=== PATIENT | male | born 1970 | race Hispanic/Latino ===

== ENCOUNTER 2017-06-16 10:57 | Inpatient (IN) ==
[2017-06-16] MEDS ORDERED: 0.9 % SODIUM CHLORIDE 1,000 ML IV ONE ×2 (11:07→12:35)
[2017-06-16] MEDS ORDERED: ACETAMINOPHEN 325 MG TABLET PO ONE (11:19)
--- NOTE | 2017-06-16 11:23 | Emergency Department Note ---
Fever HPI - General Chief Complaint: Fever Stated Complaint: fever, chills Time Seen by Provider: 06/16/17 11:09 Source: patient Mode of arrival: ambulatory Limitations: no limitations - History of Present Illness HPI Narrative: 46-year-old male presents with fever. He has had a history of severe cellulitis in his right leg and has had a history of sepsis from that. He has seen infectious disease and was on penicillin daily indefinitely but he has been out for about 2 weeks. He denies any cold symptoms or cough. He states he did have some diarrhea a couple of days ago and that cleared up and he has had just a couple extra stools a day. He denies any abdominal pain. He denies nausea or vomiting. His fever is 101.7. There is no erythema to his leg but he states that it has blown up within 30 minutes previously. He states that he has some pain in his groin and also body aches. He states he has some back pain as well. He denies any urinary symptoms. He states he has been doing okay for the last few days and then this morning he woke up and he had a lot of body aches which he thought was normal but then developed a fever. His heart rate is also elevated - Related Data Home Medications Medication Instructions Recorded Confirmed metFORMIN [Glucophage] 1,000 mg PO BIDCC 08/23/15 06/16/17 Aspirin [Rose Marie Chewable Aspirin] 81 mg PO DAILY 06/16/17 06/16/17 Empagliflozin/Linagliptin 1 each PO DAILY 06/16/17 06/16/17 [Glyxambi 25 mg-5 mg Tablet] Fenofibrate Nanocrystallized 145 mg PO DAILY 06/16/17 06/16/17 [Fenofibrate] Glimepiride [Amaryl] 5 mg PO BID 06/16/17 06/16/17 Hydrochlorothiazide [Oretic] 25 mg PO DAILY 06/16/17 06/16/17 Insulin Glargine,Hum.rec.anlog 20 unit SQ QA 06/16/17 06/16/17 [Merrick Headley] Metoprolol Succinate 50 mg PO QHS 06/16/17 06/16/17 Metoprolol Succinate [Toprol Xl] 100 mg PO QAM 06/16/17 06/16/17 Penicillin Vk 500 mg PO DAILY 06/16/17 06/16/17 Valsartan [Diovan] 320 mg PO DAILY 06/16/17 06/16/17 Allergies Allergy/AdvReac Type Severity Reaction Status Date / Time No Known Drug Allergies Allergy Verified 06/16/17 11:05 Review of Systems All systems ED: reviewed and negative except as stated. Fever PMH - Past Medical History Medical history: Reports: diabetes, hypertension, other (sepsis and cellulitis) Surgical history ED: Reports: cholecystectomy Family history: Reports: no significant family history - Social History smoking status: Never smoker Physical Exam Limitations: no limitations General appearance: alert, in no apparent distress Head: atraumatic Eye: Present: normal appearance. Absent: conjunctival injection Neck: Present: normal inspection, full ROM Chest: Present: normal inspection, symmetric chest wall rise Respiratory: Present: normal lung sounds bilaterally Cardiovascular: Present: tachycardia, normal heart sounds Abdominal: Present: soft, normal bowel sounds. Absent: tenderness Extremities: Present: normal inspection, full ROM, other (right leg shows scar with no erythema or swelling. Nontender) Neurological: Present: alert, oriented X3 Psychiatric: Present: normal affect, normal mood Skin: Present: warm, dry, intact Course Course Narrative: He will be admitted inpatient. He was given 1gm of Rocephin and 1gm of Vanco IV. Also given 30mg of Toradol for headache - Reevaluation(s) Reevaluation #1: redness and warmth of the right leg started suddenly. This is typical for his cellulitis. Time: 12:15 Vital Signs Temperature 101.7 F H 06/16/17 10:58 Pulse Rate 119 H 06/16/17 10:58 Respiratory Rate 16 06/16/17 10:58 Blood Pressure 131/84 06/16/17 10:58 Pulse Oximetry (%) 98 06/16/17 10:58 Temperature 100.2 F H 06/16/17 14:02 Pulse Rate 117 H 06/16/17 14:02 Respiratory Rate 16 06/16/17 14:02 Blood Pressure 104/78 06/16/17 14:02 Pulse Oximetry (%) 96 06/16/17 14:02 Fever - MDM Narrative Medical decision making narrative: Elevated white count, elevated lactic acid, tachycardia and inflammation of right lower extremity - Lab Data Lab results reviewed: Yes I reviewed the patient's lab results. Result diagrams: 06/16/17 11:13 06/16/17 11:13 Lab Results 06/16/17 06/16/17 06/16/17 Range/Units 11:13 11:13 11:13 WBC 13.8 H (4.5-11.0) K/mcL RBC 6.19 H (4.50-5.90) M/mcL Hgb 17.5 H (13.5-16.5) g/dL Hct 51.9 (41.0-55.0) % MCV 83.9 (80.0-100.0) fL MCH 28.2 (26.0-34.0) pg MCHC 33.6 (31.0-36.0) g/dL RDW 13.2 (11.5-14.5) % Plt Count 129 L (140-440) K/mcL MPV 10.6 H (7.4-10.4) fL Gran % 87.1 H (38.0-78.0) % Lymph % (Auto) 6.4 L (15.5-49.0) % [place] % (Auto) 5.2 (1.0-12.0) % Eos % (Auto) 1.2 (0.0-7.0) % Baso % (Auto) 0.1 (0.0-2.0) % Gran # 12.0 H (1.8-8.0) K/mcL Lymph # (Auto) 0.9 L (1.5-4.8) K/mcL [place] # (Auto) 0.7 (0.1-0.9) K/mcL Eos # (Auto) 0.2 (0.0-0.7) K/mcL Baso # (Auto) 0 (0.0-0.3) K/mcL VBG Lactic Acid 2.3 H (0.5-2.2) mmol/L Sodium 141 (133-145) mmol/L Potassium 3.7 (3.3-5.1) mmol/L Chloride 99 (96-108) mmol/L Carbon Dioxide 23 (22-30) mmol/L Anion Gap 19.0 H (8-16) BUN 22 H (6-20) mg/dl Creatinine 1.0 (0.7-1.2) mg/dl GFR Calculation 90 Glucose 187 H (70-105) mg/dL Calcium 9.7 (8.6-10.4) mg/dl Total Bilirubin 0.9 (0.0-1.0) mg/dL AST 68 H (0-37) U/l ALT 88 H (0-40) U/l Alkaline Phosphatase 71 (39-117) U/L Total Protein 7.7 (5.9-8.4) gm/dL Albumin 4.5 (3.2-5.2) gm/dL Globulin 3.2 (2.2-3.7) gm/dL Albumin/Globulin Ratio 1.4 (1.0-2.3) Procalcitonin (<0.10) ng/mL Urine Color Urine Appearance Urine pH (5.0-9.0) Ur Specific [place] (1.000-1.035) Urine Protein (NEG) mg/dL Urine Glucose (UA) (NEG) mg/dL Urine Ketones (NEG) mg/dL Urine Occult Blood (<0.03) mg/dL Urine Nitrate (NEG) Urine Bilirubin (NEG) mg/dL Urine Urobilinogen (NEG) mg/dL Ur Leukocyte Esterase (NEG) /uL Urine RBC (0-1) /hpf Urine WBC (0-4) /hpf Ur Squamous Epith Cells (0-4) /hpf Urine Bacteria (0) /hpf Urine Mucus (0) /hpf Ur Culture Indicated? 06/16/17 06/16/17 Range/Units 11:13 12:08 WBC (4.5-11.0) K/mcL RBC (4.50-5.90) M/mcL Hgb (13.5-16.5) g/dL Hct (41.0-55.0) % MCV (80.0-100.0) fL MCH (26.0-34.0) pg MCHC (31.0-36.0) g/dL RDW (11.5-14.5) % Plt Count (140-440) K/mcL MPV (7.4-10.4) fL Gran % (38.0-78.0) % Lymph % (Auto) (15.5-49.0) % [place] % (Auto) (1.0-12.0) % Eos % (Auto) (0.0-7.0) % Baso % (Auto) (0.0-2.0) % Gran # (1.8-8.0) K/mcL Lymph # (Auto) (1.5-4.8) K/mcL [place] # (Auto) (0.1-0.9) K/mcL Eos # (Auto) (0.0-0.7) K/mcL Baso # (Auto) (0.0-0.3) K/mcL VBG Lactic Acid (0.5-2.2) mmol/L Sodium (133-145) mmol/L Potassium (3.3-5.1) mmol/L Chloride (96-108) mmol/L Carbon Dioxide (22-30) mmol/L Anion Gap (8-16) BUN (6-20) mg/dl Creatinine (0.7-1.2) mg/dl GFR Calculation Glucose (70-105) mg/dL Calcium (8.6-10.4) mg/dl Total Bilirubin (0.0-1.0) mg/dL AST (0-37) U/l ALT (0-40) U/l Alkaline Phosphatase (39-117) U/L Total Protein (5.9-8.4) gm/dL Albumin (3.2-5.2) gm/dL Globulin (2.2-3.7) gm/dL Albumin/Globulin Ratio (1.0-2.3) Procalcitonin 0.13 (<0.10) ng/mL Urine Color Straw Urine Appearance Clear Urine pH 5.0 (5.0-9.0) Ur Specific [place] 1.023 (1.000-1.035) Urine Protein Neg (NEG) mg/dL Urine Glucose (UA) >=500 A (NEG) mg/dL Urine Ketones Neg (NEG) mg/dL Urine Occult Blood Neg (<0.03) mg/dL Urine Nitrate Neg (NEG) Urine Bilirubin Neg (NEG) mg/dL Urine Urobilinogen Neg (NEG) mg/dL Ur Leukocyte Esterase Neg (NEG) /uL Urine RBC < 1 (0-1) /hpf Urine WBC 0 (0-4) /hpf Ur Squamous Epith Cells 0 (0-4) /hpf Urine Bacteria 0 (0) /hpf Urine Mucus Few (0) /hpf Ur Culture Indicated? No - Radiology Data Radiology results reviewed: Yes I reviewed the patient's radiology results. Normal chest. Disposition Pt seen by [employer]PERATOR/PA only: Yes Clinical Impression: Sepsis, Cellulitis Disposition: Xfer As Inpt ([facility]) Condition: Fair
[2017-06-16] MEDS ORDERED: cefTRIAXone 1 GM VIAL IV ONE (11:58)
[2017-06-16 12:02] LABS: Basophils # (Auto) 0 K/mcL (0.0-0.3); Basophils % (Auto) 0.1 % (0.0-2.0); Eosinophils # (Auto) 0.2 K/mcL (0.0-0.7); Eosinophils % (Auto) 1.2 % (0.0-7.0); Granulocytes % (Auto) 87.1 % (38.0-78.0); Lymphocytes # (Auto) 0.9 K/mcL (1.5-4.8); Lymphocytes % (Auto) 6.4 % (15.5-49.0); Mean Cell Volume 83.9 fL (80.0-100.0); Mean Corpuscular HGB Conc 33.6 g/dL (31.0-36.0); Mean Corpuscular Hemoglobin 28.2 pg (26.0-34.0); Monocytes # (Auto) 0.7 K/mcL (0.1-0.9); Monocytes % (Auto) 5.2 % (1.0-12.0); Platelet Count 129 K/mcL (140-440); RBC 6.19 M/mcL (4.50-5.90); Red Cell Distribution Width 13.2 % (11.5-14.5)
[2017-06-16 12:34] LABS: ALT/SGPT 88 U/l (0-40); Albumin 4.5 gm/dL (3.2-5.2); Albumin/Globulin Ratio 1.4 (1.0-2.3); Alkaline Phosphatase 71 U/L (39-117); Blood Urea Nitrogen 22 mg/dl (6-20)
--- NOTE | 2017-06-16 12:38 | XRay Report ---
CLINICAL INFORMATION: Fever COMPARISON: 05/05/2012 chest x-ray FINDINGS: The heart size, mediastinum and pulmonary vessels are unremarkable. The lungs are clear. There are no effusions. The bones and soft tissues are within normal limits. IMPRESSION: Normal chest. Interpreted and Authenticated by: Hayes Melchor 06/16/17
[2017-06-16] MEDS ORDERED: KETOROLAC 15 MG/ML VIAL IV ONE (12:40)
[2017-06-16] MEDS ORDERED: KETOROLAC 30 MG/ML VIAL IV ONE (12:41)
[2017-06-16 12:44] LABS: Appearance,Urine CLEAR; Bacteria,Urine 0 /hpf (0); Bilirubin,Urine NEG (NEG); Color,Urine STRAW; Glucose,Urine (UA) >=500 mg/dL (NEG); Leukocyte Esterase,Urine NEG /uL (NEG); Mucus,Urine FEW /hpf (0); Nitrate,Urine NEG (NEG); Protein,Urine NEG (NEG); Specific Gravity,Urine 1.023 (1.000-1.035); Urine Blood NEG mg/dL (<0.03); Urine RBC < 1 /hpf (0-1); Urine Squamous Epithelial Cell 0 /hpf (0-4); Urine WBC 0 /hpf (0-4); Urobilinogen,Urine NEG (NEG)
[2017-06-16] MEDS ORDERED: VANCOMYCIN 1,000 MG in 0.9 % SODIUM CHLORIDE 250 ML IV ONE (12:57)
--- NOTE | 2017-06-16 13:27 | Internal Med History&Physical ---
Medical - H&P: HPI Patient information: Note initiated : 06/16/17 at 1:27 pm Service Date, if different from initiated Date: [] Patient: Abdirashid Corrales a 46 y/o M admitted on for fever, chills. Chief Complaint: [] History of present illness: Mr. Corrales is a 46 year old man who presented to the emergency room today complaining of fever, myalgias, groin pain. He reported that he ran out of penicillin, which he is supposed to take daily for chronic right lower extremity cellulitis. The patient reports that he was first diagnosed with right lower extremity cellulitis in April 2014. He then had a recurrence in spring of this year. He believes he was hospitalized at [facility] for that. He says there is some question of osteomyelitis, and also some question of bacterial endocarditis. He was ultimately discharged to home and treated with IV vancomycin for 6 weeks. He followed up with ID, who recommended lifetime oral penicillin for suppression. This worked well, but about 1-1/2 weeks ago he ran out of his penicillin. Yfn told him that he did not have refills, and then the holidays got in the way of him getting a new prescription. He was feeling well until this morning at around 9 clock he suddenly developed fever and chills. He knew that meant he was in trouble, so he reported to the emergency room, where he was found to be tachycardic and febrile. Within about 30 minutes he developed redness in his right leg and swelling, increased warmth and pain. Lactic acid was mildly elevated, he also has leukocytosis at 13,000. He is now admitted for right lower extremity cellulitis, with possible impending sepsis. Otherwise, he denies dizziness, new eye or ear symptoms, sore throat or cough, swollen glands, chest pain or palpitations, shortness of breath, abdominal pain , nausea or vomiting, diarrhea or constipation, dysuria. He had a mild headache today, but that is improved. Glucoses at home generally run less than 140, but have been running around 200 for the last couple of days. Past medical history: Diabetes type 2, insulin-dependent, diagnosed in 2009 Hypertension Cellulitis with previous sepsis, 2013 ? Bacterial endocarditis, spring 2016. ID notes indicate abnormal thickening of one cusp of his aortic valve, possibly consistent with endocarditis. TORIE was negative for endocarditis. Treated with IV antibiotics followed by oral Keflex. Previous bacteremia with Streptococcus. Status post treatment with 12 weeks of IV ceftriaxone plus vancomycin. Now on chronic suppression with penicillin VK Obstructive sleep apnea, on CPAP Obesity, with recent weight loss of approximately 80 pounds. History of fatty liver. ? Hyperlipidemia. History of pneumococcal pneumonia. [facility] history of positive MRSA screen Medications: As noted below. CPAP nightly Allergies: No known drug allergies Family history: Mother had diabetes, coronary disease, pacemaker. Father had a history of premature coronary disease. His sister has diabetes and hypertension. His brother has hypertension. Social history: Patient is and lives with his and 2 children. 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 He does not use tobacco or drugs. He drinks alcohol rarely. Medical - H&P: Meds Home Medications Medication Instructions Recorded Confirmed Type metFORMIN [Glucophage] 1,000 mg PO BIDCC 08/23/15 06/16/17 History Aspirin [Rose Marie Chewable Aspirin] 81 mg PO DAILY 06/16/17 06/16/17 History Empagliflozin/Linagliptin 1 each PO DAILY 06/16/17 06/16/17 History [Glyxambi 25 mg-5 mg Tablet] Fenofibrate Nanocrystallized 145 mg PO DAILY 06/16/17 06/16/17 History [Fenofibrate] Glimepiride [Amaryl] 5 mg PO BID 06/16/17 06/16/17 History Hydrochlorothiazide [Oretic] 25 mg PO DAILY 06/16/17 06/16/17 History Insulin Glargine,Hum.rec.anlog 20 unit SQ QAM 06/16/17 06/16/17 History [Toujeo Solostar] Metoprolol Succinate 50 mg PO QHS 06/16/17 06/16/17 History Metoprolol Succinate [Toprol Xl] 100 mg PO QAM 06/16/17 06/16/17 History Penicillin Vk 500 mg PO DAILY 06/16/17 06/16/17 History Valsartan [Diovan] 320 mg PO DAILY 06/16/17 06/16/17 History Allergies Allergy/AdvReac Type Severity Reaction Status Date / Time No Known Drug Allergies Allergy Verified 06/16/17 11:05 Medical - H&P: Exam - Constitutional Vitals: Temp Pulse Resp BP Pulse Ox 99.5 F H 108 H 16 100/60 95 06/16/17 12:30 06/16/17 13:26 06/16/17 13:26 06/16/17 13:26 06/16/17 13:26 Heart rate is ranging from 108-122 ; temperatures ranging from 99.5-101.7. Blood pressure is ranging from 100-131 /60-84. O2 saturation is 98% on room air. On exam, he is a well-developed well-nourished man in no acute distress. Head: Normocephalic, atraumatic. Eyes: PERRLA, EOMI, anicteric. There is a left eye pterygium. Ears: TMs and canals are clear. Pharynx: Pharynx is crowded. Mucosa is normal. Neck: Circumference is quite large. There is no obvious lymphadenopathy, thyromegaly, JVD, bruits. Cardiac exam: Shows regular rate and rhythm with normal S1 and S2, without murmurs, rubs, gallops. Lungs: Are clear to auscultation, without rales, rhonchi, wheezes. Abdomen: Is soft and nontender without obvious masses. Bowel sounds are normoactive. Extremities: Left lower extremity appears normal without edema. Right lower extremity: Lower leg has diffuse swelling, with somewhat ill- defined erythema spreading across the goodman area. This is been outlined with ink. This area is quite warm to the touch and also tender. No skin breaks or ulcerations are noted. Neurologic exam: Is grossly nonfocal. Medical - H&P: Reslt - Labs CBC & Chem 7: 06/17/17 04:50 06/17/17 04:50 Labs: Short CBC 06/16/17 Range/Units 11:13 WBC 13.8 H (4.5-11.0) K/mcL Hgb 17.5 H (13.5-16.5) g/dL Hct 51.9 (41.0-55.0) % Plt Count 129 L (140-440) K/mcL BMP 06/16/17 11:13 Sodium 141 Potassium 3.7 Chloride 99 Carbon Dioxide 23 BUN 22 H Creatinine 1.0 Glucose 187 H Calcium 9.7 Liver Function 06/16/17 Range/Units 11:13 Total Bilirubin 0.9 (0.0-1.0) mg/dL AST 68 H (0-37) U/l ALT 88 H (0-40) U/l Alkaline Phosphatase 71 (39-117) U/L Albumin 4.5 (3.2-5.2) gm/dL Urine 06/16/17 Range/Units 12:08 Urine Color Straw Urine Appearance Clear Urine pH 5.0 (5.0-9.0) Ur Specific [place] 1.023 (1.000-1.035) Urine Protein Neg (NEG) mg/dL Urine Glucose (UA) >=500 A (NEG) mg/dL June 16: CBC: White blood cell count 13,000, hemoglobin 17.5, hematocrit 51, platelets 129,000. Differential shows 12,000 granulocytes. 900 lymphocytes. Chemistry panel: 141, potassium 3.7, anion gap 19, BUN 22, creatinine 1.0, glucose 187, calcium 9.7, total bilirubin 0.9 Lactic acid is elevated at 2.3 Pro-calcitonin is normal at 0.13 Anion gap is elevated at 19 next Chest x-ray is read as normal. Medical - H&P: A/P (1) Cellulitis of right lower extremity Current visit: Yes Status: Acute (2) SIRS (systemic inflammatory response syndrome) Current visit: Yes Status: Acute (3) Type 2 diabetes mellitus Current visit: Yes Status: Chronic (4) Lactic acidosis Current visit: Yes Status: Acute - Narrative A/P Narrative: #1. Infectious disease. Patient presents with his typical symptoms of fever and right lower extremity pain, consistent with recurrent cellulitis. He has had several episodes in the past, some associated with sepsis. He meets criteria for Sirs, and has mildly elevated lactic acidosis, indicating possible impending sepsis. -Admit. -IV fluids, cultures. -Empiric coverage with Zosyn and vancomycin. -Follow-up labs in the a.m. -Pain meds, antipyretics as needed. -Obtained previous records from his ID physician. 2. Endocrine. Type 2 diabetes. Continue usual medications, but we will probably hold metformin until he is well hydrated. Accu-Cheks and sliding scale insulin coverage as needed. -diabetic diet. 3. Hypertension. Continue usual medications, holding if needed. Hold HCTZ for now. 4. CODE STATUS: Full code. His will act as his POA. 5. DVT prophylaxis: Subcu heparin. 6. obesity associated with elevated hemoglobin. -Patient has known obstructive sleep apnea. His will bring in his home CPAP machine to use. Next 7. GI. Patient reports history of fatty liver. He is working on weight loss and exercise. Continue cholesterol medications. Today's visit took approximately 55 minutes, to review his case with the ER MD, review his test results, interview and examine him, and write orders.
[2017-06-16] MEDS ORDERED: NALOXONE HCL 0.4 MG/ML VIAL IV PRN (13:54)
[2017-06-16] MEDS ORDERED: HYDROcodone/APAP 5/325MG TABLET PO PRN (13:54)
[2017-06-16] MEDS ORDERED: ONDANSETRON 4 MG/2 ML VIAL IV PRN (13:54)
[2017-06-16] MEDS ORDERED: CALCIUM CARBONATE 500 MG TAB.CHEW CHEWED PRN (13:54)
[2017-06-16] MEDS ORDERED: DEXTROSE 50% 50 ML VIAL IV PRN (13:54)
[2017-06-16] MEDS ORDERED: MAGNESIUM HYDROXIDE 30 ML ORAL.SUSP PO PRN (13:54)
[2017-06-16] MEDS ORDERED: DEXTROSE 31 GM ORAL.SUSP PO PRN (13:54)
[2017-06-16] MEDS ORDERED: VANCOMYCIN PER PHARMACY IV SCH (13:54)
[2017-06-16] MEDS ORDERED: DOCUSATE SODIUM 100 MG CAPSULE PO PRN (13:54)
[2017-06-16] MEDS ORDERED: ALBUTEROL SULFATE 2.5 MG/3 ML NEBULIZER NEB PRN (13:54)
[2017-06-16] MEDS: PIPERACILLIN SODIUM/TAZOBACTAM 3.375 GM in DEXTROSE 5% IN WATER 50 ML IV SCH ×2 (14:30→18:55)
[2017-06-16] MEDS: 0.9 % SODIUM CHLORIDE 10 ML SYRINGE IV SCH ×2 (14:30→23:07)
[2017-06-16] MEDS: POTASSIUM CHLORIDE 20 MEQ in 0.45 % SODIUM CHLORIDE 1,000 ML IV SCH ×2 (14:30→22:54)
[2017-06-16] MEDS ORDERED: metFORMIN 500 MG TABLET PO SCH (17:30)
[2017-06-16] MEDS: ACETAMINOPHEN 325 MG TABLET PO PRN (17:36)
[2017-06-16] MEDS: INSULIN LISPRO 1 UNIT/0.01 ML UNIT SQ SCH ×2 (17:36→21:06)
[2017-06-16] MEDS: VANCOMYCIN 1,500 MG in 0.9 % SODIUM CHLORIDE 500 ML IV SCH (20:59)
[2017-06-16] MEDS ORDERED: POTASSIUM CHLORIDE 20 MEQ/10 ML VIAL IV ONE (22:28)
[2017-06-16] MEDS: METOPROLOL SUCCINATE 50 MG TAB.XL.24H PO SCH (22:54)
[2017-06-16] MEDS ORDERED: IBUPROFEN 800 MG TABLET PO ONE (23:03)
[2017-06-16] MEDS: HEPARIN 5,000 UNIT/ML VIAL SQ SCH (23:22)
[2017-06-17] MEDS: PIPERACILLIN SODIUM/TAZOBACTAM 3.375 GM in DEXTROSE 5% IN WATER 50 ML IV SCH ×5 (01:20→23:20)
[2017-06-17 05:44] LABS: Basophils # (Auto) 0 K/mcL (0.0-0.3); Basophils % (Auto) 0.1 % (0.0-2.0); Eosinophils # (Auto) 0 K/mcL (0.0-0.7); Eosinophils % (Auto) 0.2 % (0.0-7.0); Granulocytes % (Auto) 85.1 % (38.0-78.0); Lymphocytes # (Auto) 0.9 K/mcL (1.5-4.8); Lymphocytes % (Auto) 8.8 % (15.5-49.0); Mean Corpuscular HGB Conc 33.8 g/dL (31.0-36.0); Monocytes # (Auto) 0.6 K/mcL (0.1-0.9); Monocytes % (Auto) 5.8 % (1.0-12.0); Platelet Count 105 K/mcL (140-440); RBC 5.57 M/mcL (4.50-5.90); Red Cell Distribution Width 13.1 % (11.5-14.5)
[2017-06-17] MEDS: 0.9 % SODIUM CHLORIDE 10 ML SYRINGE IV SCH ×3 (06:08→21:45)
[2017-06-17 06:10] LABS: ALT/SGPT 54 U/l (0-40); Albumin 3.3 gm/dL (3.2-5.2); Albumin/Globulin Ratio 1.1 (1.0-2.3); Alkaline Phosphatase 45 U/L (39-117); Bilirubin,Direct 0.2 mg/dL (0.0-0.3); Blood Urea Nitrogen 18 mg/dl (6-20); Gamma Glutamyl Transpeptidase 47 U/L (8-61); Uric Acid 4.7 mg/dL (2.5-8.0)
[2017-06-17] MEDS: INSULIN LISPRO 1 UNIT/0.01 ML UNIT SQ SCH ×4 (08:32→21:28)
[2017-06-17] MEDS: FENOFIBRATE 43 MG CAPSULE PO SCH (08:53)
[2017-06-17] MEDS: ASPIRIN 81 MG TAB.CHEW PO SCH (08:54)
[2017-06-17] MEDS: HEPARIN 5,000 UNIT/ML VIAL SQ SCH ×2 (08:54→21:27)
[2017-06-17] MEDS: METOPROLOL SUCCINATE 50 MG TAB.XL.24H PO SCH ×2 (08:54→21:29)
[2017-06-17] MEDS: OLMESARTAN MEDOXOMIL 20 MG TABLET PO SCH (08:55)
[2017-06-17] MEDS: EMPAGLIFLOZIN PO SCH (08:56)
[2017-06-17] MEDS: LINAGLIPTIN PO SCH (08:56)
[2017-06-17] MEDS: POTASSIUM CHLORIDE 20 MEQ in 0.45 % SODIUM CHLORIDE 1,000 ML IV SCH ×3 (08:56→17:35)
[2017-06-17] MEDS: VANCOMYCIN 1,500 MG in 0.9 % SODIUM CHLORIDE 500 ML IV SCH ×2 (09:35→21:26)
[2017-06-17] MEDS: GLIMEPIRIDE 2 MG TABLET PO SCH ×2 (09:35→17:49)
[2017-06-17] MEDS: INSULIN GLARGINE, HUMAN 1 UNIT/0.01 ML SQ SCH (11:07)
--- NOTE | 2017-06-17 11:57 | Internal Med Progress Note ---
Medical - PN: Subj Patient information: Note initiated : 06/17/17 at 11:56 am Service Date, if different from initiated Date: [] Patient: Abdirashid Corrales 46 y/o M admitted on 06/16/17 for fever, chills. Chief Complaint: [] Interval history: June 16, 2017: History of present illness: Mr. Corrales is a 46 year old man who presented to the emergency room today complaining of fever, myalgias, groin pain. He reported that he ran out of penicillin, which he is supposed to take daily for chronic right lower extremity cellulitis. The patient reports that he was first diagnosed with right lower extremity cellulitis in April 2014. He then had a recurrence in spring of this year. He believes he was hospitalized at [facility] for that. He says there is some question of osteomyelitis, and also some question of bacterial endocarditis. He was ultimately discharged to home and treated with IV vancomycin for 6 weeks. He followed up with ID, who recommended lifetime oral penicillin for suppression. This worked well, but about 1-1/2 weeks ago he ran out of his penicillin. Yfn told him that he did not have refills, and then the holidays got in the way of him getting a new prescription. He was feeling well until this morning at around 9 clock he suddenly developed fever and chills. He knew that meant he was in trouble, so he reported to the emergency room, where he was found to be tachycardic and febrile. Within about 30 minutes he developed redness in his right leg and swelling, increased warmth and pain. Lactic acid was mildly elevated, he also has leukocytosis at 13,000. He is now admitted for right lower extremity cellulitis, with possible impending sepsis. Otherwise, he denies dizziness, new eye or ear symptoms, sore throat or cough, swollen glands, chest pain or palpitations, shortness of breath, abdominal pain , nausea or vomiting, diarrhea or constipation, dysuria. He had a mild headache today, but that is improved. Glucoses at home generally run less than 140, but have been running around 200 for the last couple of days. June 17: Outpatient notes obtained from Dr. Doshi from [facility], ID clinic, noted patient had several episodes of cellulitis starting in 2013. At some point he was diagnosed with streptococcal bacteremia. Echocardiogram was suspicious for possible aortic valve vegetation, but follow-up TORIE was negative. Patient was treated with 12 weeks of IV Rocephin plus vancomycin, and then transitioned to oral Keflex, and then to chronic oral penicillin for suppression. Last night, he continued to run a high fever, but that eventually broke after a dose of oral ibuprofen. Today, he says he is feeling quite a bit better. His leg is still feeling quite red and hot, but otherwise he is no longer having fever or chills. He denies swollen glands, chest pain or palpitations, shortness of breath, GI or symptoms appear - Constitutional Vitals: Vital Signs Temp Pulse Resp BP Pulse Ox 98.9 F 93 H 20 108/70 93 06/17/17 08:00 06/17/17 08:00 06/17/17 08:00 06/17/17 07:46 06/17/17 08:00 Period Temp Pulse Resp BP Sys/Baum Pulse Ox Last 24 Hr 98.5 F-102.4 F 85-118 9-28 94-128/60-86 92-98 Intake and Output 06/16/17 06/17/17 06/17/17 21:59 05:59 13:59 Intake Total 1000 / 1000 2160 / 2160 1010 / 1010 Output Total 700 / 700 1000 / 1000 1200 / 1200 Balance 300 / 300 1160 / 1160 -190 / -190 Weight 288 lb 8 oz Intake & Output: Intake & Output 06/16/17 06/17/17 06/17/17 21:59 05:59 13:59 Intake Total 1000 / 1000 2160 / 2160 1010 / 1010 Output Total 700 / 700 1000 / 1000 1200 / 1200 Balance 300 / 300 1160 / 1160 -190 / -190 Weight 288 lb 8 oz Intake: IV 100 / 100 1560 / 1560 1010 / 1010 Zosyn 3.375 gm In Dextrose 5% 100 / 100 50 / 50 in Water 50 ml @ 100 mls/hr IV Q6H [facility] Rx#:[id number] Potassium Chloride 20 Meq In 1010 / 1010 1010 / 1010 Sodium Chloride 0.45% 1,000 ml @ 125 mls/hr IV .Q8H5M [facility] Rx#: [id number] Vancomycin 1,500 mg In Sodium 500 / 500 Chloride 0.9% 500 ml @ 333.3 mls/hr IV Q12H [facility] Rx#: [id number] Oral 900 / 900 600 / 600 Output: Void Amount 700 / 700 1000 / 1000 1200 / 1200 Other: Meal Dinner Percent of Meal Consumed 75% On exam, he is in no acute distress, sitting on the side of his bed. T-max 102.4 currently 98.2. Neck is supple without obvious JVD. Cardiac exam shows regular rate and rhythm. Lungs are clear to auscultation. Abdomen is soft. Extremities: Left lower extremity looks fine. Right lower extremity continues red and swollen. The area of erythema is a little less intense than yesterday, but it has spread beyond the inked margins proximally. There is still a fair amount of edema and tenderness. Neurologic exam is grossly nonfocal. Medical - PN: Obj Da - Labs CBC & Chem 7: 06/17/17 04:50 06/17/17 04:50 Labs: Abnormal Lab Results 06/17/17 06/17/17 06/16/17 04:50 04:50 12:08 WBC RBC Hgb Plt Count 105 L MPV 11.0 H Gran % 85.1 H Lymph % (Auto) 8.8 L Gran # 9.2 H Lymph # (Auto) 0.9 L VBG Lactic Acid Carbon Dioxide 21 L Anion Gap BUN Glucose 108 H Calcium 8.4 L Total Bilirubin 1.5 H AST ALT 54 H Triglycerides 233 H Urine Glucose (UA) >=500 A 06/16/17 06/16/17 06/16/17 11:13 11:13 11:13 WBC 13.8 H RBC 6.19 H Hgb 17.5 H Plt Count 129 L MPV 10.6 H Gran % 87.1 H Lymph % (Auto) 6.4 L Gran # 12.0 H Lymph # (Auto) 0.9 L VBG Lactic Acid 2.3 H Carbon Dioxide Anion Gap 19.0 H BUN 22 H Glucose 187 H Calcium Total Bilirubin AST 68 H ALT 88 H Triglycerides Urine Glucose (UA) June 17: Blood cultures are negative so far. June 16: CBC: White blood cell count 13,000, hemoglobin 17.5, hematocrit 51, platelets 129,000. Differential shows 12,000 granulocytes. 900 lymphocytes. Chemistry panel: 141, potassium 3.7, anion gap 19, BUN 22, creatinine 1.0, glucose 187, calcium 9.7, total bilirubin 0.9 Lactic acid is elevated at 2.3 Pro-calcitonin is normal at 0.13 Anion gap is elevated at 19 next Chest x-ray is read as normal. Meds: Medications Acetaminophen (Tylenol) 650 mg PO Q6HP PRN PRN Reason: PAIN/FEVER > 101 Last Admin: 06/16/17 17:36 Dose: 650 mg Hydrocodone Bitart/Acetaminophen ([place] 5/325mg) 1 tab PO Q4HP PRN PRN Reason: PAIN LEVEL 3-6 Albuterol Sulfate (Ventolin) 2.5 mg NEB Q2HP PRN PRN Reason: Shortness Of Breath Aspirin (Aspirin) 81 mg PO DAILY [facility] Last Admin: 06/17/17 08:54 Dose: 81 mg Calcium Carbonate/Glycine (Tums) 1,000 mg CHEWED Q4HP PRN PRN Reason: Dyspepsia Dextrose (Dextrose 50%) 0 ml IV UD PRN PRN Reason: Hypoglycemia Diagnostic Test (Pha) (Accu-Chek) 1 each FS ACHS [facility] Last Admin: 06/17/17 08:29 Dose: 1 each Docusate Sodium (Colace) 100 mg PO BID PRN PRN Reason: Constipation Fenofibrate (Antara) 129 mg PO DAILY [facility] Last Admin: 06/17/17 08:53 Dose: 129 mg Glimepiride (Amaryl) 5 mg PO BIDAC [facility] Last Admin: 06/17/17 09:35 Dose: 5 mg Glucose (Insta-Glucose) 15 gm PO PRN PRN PRN Reason: Hypoglycemia Heparin Sodium (Porcine) (Heparin) 5,000 unit SQ Q12 [facility] Last Admin: 06/17/17 08:54 Dose: 5,000 unit Piperacillin Sod/Tazobactam (Sod 3.375 gm/ Dextrose) 50 mls @ 100 mls/hr IV Q6H [facility] Last Admin: 06/17/17 06:08 Dose: 100 mls/hr Potassium Chloride 20 meq/ (Sodium Chloride) 1,010 mls @ 125 mls/hr IV .Q8H5M [facility] Last Admin: 06/17/17 11:09 Dose: Not Given Vancomycin HCl 1,500 mg/ (Sodium Chloride) 500 mls @ 333.3 mls/hr IV Q12H [facility] Last Admin: 06/17/17 09:35 Dose: 333.3 mls/hr Insulin Glargine (Lantus) 20 unit SQ DAILY [facility] Last Admin: 06/17/17 11:07 Dose: 20 unit Insulin Human Lispro (Humalog) 0 unit SQ ACHS [facility] PRN Reason: Protocol Last Admin: 06/17/17 08:32 Dose: Not Given Magnesium Hydroxide (Milk Of Magnesia) 30 ml PO DAILYP PRN PRN Reason: Constipation Metoprolol Succinate (Toprol Xl) 100 mg PO DAILY [facility] Last Admin: 06/17/17 08:54 Dose: 100 mg Metoprolol Succinate (Toprol Xl) 50 mg PO QHS [facility] Last Admin: 06/16/17 22:54 Dose: Not Given Naloxone HCl (Narcan) 0.1 mg IV Q2MIN PRN PRN Reason: Opiate Reversal Olmesartan (Benicar) 40 mg PO DAILY [facility] Last Admin: 06/17/17 08:55 Dose: 40 mg Ondansetron HCl (Zofran) 4 mg IV Q6HP PRN PRN Reason: Nausea And Vomiting Empagliflozin/Linagliptin [ Glyxambi] 25/5 Mg Tab 1 dose PO DAILY [facility] Last Admin: 06/17/17 08:56 Dose: Not Given Pneumococcal Polyvalent Vaccine (Pneumovax 23) 0.5 ml IM .ONCE ONE Stop: 06/18/17 10:01 Sodium Chloride (Saline Flush) 10 ml IV Q8 [facility] Last Admin: 06/17/17 06:08 Dose: Not Given Vancomycin HCl (Vancomycin Per Pharmacy) 1 order IV UD [facility] Medical - PN: A/P - Time Spent With Patient Total time spent is greater than 50% in coordination of care (as documented) at patient's floor/unit and/or counseling patient: 25 - 35 minutes (1) Cellulitis of right lower extremity Status: Acute Current Visit: Yes (2) SIRS (systemic inflammatory response syndrome) Status: Acute Current Visit: Yes (3) Type 2 diabetes mellitus Status: Chronic Current Visit: Yes (4) Lactic acidosis Status: Resolved Current Visit: Yes (5) Hypertension Status: Chronic Current Visit: Yes (6) Streptococcal bacteremia Status: Resolved Current Visit: Yes (7) Obstructive sleep apnea Status: Chronic Current Visit: Yes (8) Fatty liver Status: Chronic Current Visit: Yes (9) Pneumococcal pneumonia Status: Resolved Current Visit: Yes - Narrative A/P Narrative: 1. Infectious disease. Patient presents with his typical symptoms of fever and right lower extremity pain, consistent with recurrent cellulitis. He has had several episodes in the past, some associated with sepsis. He meets criteria for SIRS syndrome, and has mildly elevated lactic acidosis, indicating possible impending sepsis. -The patient was started on empiric treatment with Zosyn and vancomycin. His fever finally broke this morning. He is feeling quite a bit better. However, the area of erythema is spreading a bit, so this margin was inked again today. Next -Continue IV Zosyn and vancomycin for now. Once he is showing some clinical improvement, consider discharging him to home with outpatient IV antibiotics. I reviewed his case and course with his today, and she recalls that he was on IV Rocephin and vancomycin for previous episodes. Next Patient does have a spot on his goodman where he had a puncture wound from a football shoe cleat in the past. He has wondered if this could be hiding bacteria that causes recurrent episodes of cellulitis. It might be worthwhile to ask dermatology to remove that lesion, just in case it is acting as a nidus for recurrent infection. -Follow-up labs in the a.m. -Pain meds, antipyretics as needed. 2. Endocrine. Type 2 diabetes. Continue usual medications, probably okay to resume metformin at this point. Accu-Cheks and sliding scale insulin coverage as needed. -diabetic diet. 3. Hypertension. Continue usual medications, holding if needed. Hold HCTZ for now. Blood pressures are well controlled at this time. 4. CODE STATUS: Full code. His will act as his POA. 5. DVT prophylaxis: Subcu heparin. 6. obesity associated with elevated hemoglobin. -Patient has known obstructive sleep apnea. His will bring in his home CPAP machine to use. 7. GI. Patient reports history of fatty liver. He is working on weight loss and exercise. Continue cholesterol medications. Medical - PN: Qual - VTE Deep Vein Thrombosis/Pulmonary Embolism Present on Admission: No
[2017-06-17] MEDS: ACETAMINOPHEN 325 MG TABLET PO PRN (17:50)
[2017-06-17] MEDS ORDERED: IBUPROFEN 600 MG TABLET PO PRN (18:20)
[2017-06-18] MEDS: POTASSIUM CHLORIDE 20 MEQ in 0.45 % SODIUM CHLORIDE 1,000 ML IV SCH ×4 (02:49→21:36)
[2017-06-18] MEDS: PIPERACILLIN SODIUM/TAZOBACTAM 3.375 GM in DEXTROSE 5% IN WATER 50 ML IV SCH ×3 (05:54→17:24)
[2017-06-18] MEDS: 0.9 % SODIUM CHLORIDE 10 ML SYRINGE IV SCH ×3 (05:55→20:27)
[2017-06-18 06:07] LABS: Basophils # (Auto) 0 K/mcL (0.0-0.3); Basophils % (Auto) 0.5 % (0.0-2.0); Eosinophils # (Auto) 0.2 K/mcL (0.0-0.7); Eosinophils % (Auto) 3.1 % (0.0-7.0); Granulocytes % (Auto) 69.2 % (38.0-78.0); Lymphocytes # (Auto) 1.3 K/mcL (1.5-4.8); Lymphocytes % (Auto) 17.1 % (15.5-49.0); Mean Cell Volume 84.5 fL (80.0-100.0); Mean Corpuscular HGB Conc 33.2 g/dL (31.0-36.0); Mean Corpuscular Hemoglobin 28.1 pg (26.0-34.0); Monocytes # (Auto) 0.8 K/mcL (0.1-0.9); Monocytes % (Auto) 10.1 % (1.0-12.0); Platelet Count 105 K/mcL (140-440); RBC 5.32 M/mcL (4.50-5.90)
[2017-06-18 06:37] LABS: ALT/SGPT 45 U/l (0-40); Albumin 3.5 gm/dL (3.2-5.2); Albumin/Globulin Ratio 1.3 (1.0-2.3); Alkaline Phosphatase 51 U/L (39-117); Bilirubin,Direct < 0.2 mg/dL (0.0-0.3); Blood Urea Nitrogen 15 mg/dl (6-20); Gamma Glutamyl Transpeptidase 41 U/L (8-61); Magnesium 2.3 mg/dL (1.6-2.5); Uric Acid 3.3 mg/dL (2.5-8.0)
[2017-06-18] MEDS: INSULIN LISPRO 1 UNIT/0.01 ML UNIT SQ SCH ×4 (08:27→20:17)
[2017-06-18] MEDS: HEPARIN 5,000 UNIT/ML VIAL SQ SCH ×2 (08:52→20:18)
[2017-06-18] MEDS: GLIMEPIRIDE 2 MG TABLET PO SCH ×2 (08:53→17:26)
[2017-06-18] MEDS: ASPIRIN 81 MG TAB.CHEW PO SCH (08:53)
[2017-06-18] MEDS: FENOFIBRATE 43 MG CAPSULE PO SCH (08:53)
[2017-06-18] MEDS: metFORMIN 500 MG TABLET PO SCH ×2 (08:53→17:24)
[2017-06-18] MEDS: METOPROLOL SUCCINATE 50 MG TAB.XL.24H PO SCH ×2 (08:53→20:18)
[2017-06-18] MEDS: OLMESARTAN MEDOXOMIL 20 MG TABLET PO SCH (08:54)
[2017-06-18] MEDS: LINAGLIPTIN PO SCH (08:54)
[2017-06-18] MEDS: EMPAGLIFLOZIN PO SCH (08:54)
[2017-06-18] MEDS ORDERED: PNEUMOCOCCAL 23-VAL P-SAC VAC 0.5 ML VIAL IM ONE (10:00)
[2017-06-18] MEDS: INSULIN GLARGINE, HUMAN 1 UNIT/0.01 ML SQ SCH (10:15)
[2017-06-18] MEDS: VANCOMYCIN 2,000 MG in 0.9 % SODIUM CHLORIDE 500 ML IV SCH ×2 (11:00→20:19)
[2017-06-18] MEDS: VANCOMYCIN 1,500 MG in 0.9 % SODIUM CHLORIDE 500 ML IV SCH (13:25)
--- NOTE | 2017-06-18 17:12 | Discharge Summary ---
Medical - DS: Prov Patient information: Note initiated : 06/18/17 at 5:05 pm Service Date, if different from initiated Date: [] Patient: Abdirashid Corrales 46 y/o M admitted on 06/16/17 for fever, chills. Chief Complaint: [] Date of admission: 06/16/17 13:49 Discharge date: 06/18/17 Primary care physician: Adrien Smith Admitting clinician: Deja Cash Consults: 06/16/17 13:01 Consult to Physician [CONS] Stat Comment: Consulting Provider: Deja Cash Reason For Exam: Physician to Consult Attending physician on discharge: Deja Cash Medical - DS: Meds - Discharge Medications Prescriptions: cefTRIAXone [Rocephin] 1 gm IM Q24H #7 vial Vancomycin/0.9 % Sod Chloride [Vanco 2 Gram/500 ml-0.9% NaCl] 2 gm IV Q12H 7 Days #14 mg Active and Home Medications: Discharge medications: Vancomycin, 2 g IV every 12 hours, managed per pharmacy Rocephin 1 g IV every 24 hours 1 week, then reassess by PCP Tylenol 650 mg every 6 hours as needed Ibuprofen 600 mg p.o. every 8 hours as needed uncontrolled fever, please use sparingly, as this can be hard on your kidneys metFORMIN [Glucophage] 1,000 mg PO BIDCC Aspirin [Rose Marie Chewable Aspirin] 81 mg PO DAILY Empagliflozin/Linagliptin [Glyxambi 25 mg-5 mg Tablet] 1 each PO DAILY Fenofibrate Nanocrystallized [Fenofibrate] 145 mg PO DAILY Glimepiride [Amaryl] 5 mg PO BID 06/16/17 Hydrochlorothiazide [Oretic] 25 mg PO DAILY Insulin Glargine,Hum.rec.anlog [Merrick Headley] 20 unit SQ QAM Metoprolol Succinate 50 mg PO QHS Metoprolol Succinate [Toprol Xl] 100 mg PO QAM Penicillin Vk 500 mg PO DAILY Valsartan [Diovan] 320 mg PO DAILY Previous home Medications: metFORMIN [Glucophage] 1,000 mg PO BIDCC 08/23/15 [History Confirmed 06/16/17 Last Taken 06/16/17] Aspirin [Rose Marie Chewable Aspirin] 81 mg PO DAILY 06/16/17 [History Confirmed 08/02 Last Taken 06/16/17] Empagliflozin/Linagliptin [Glyxambi 25 mg-5 mg Tablet] 1 each PO DAILY 06/16/17 [History Confirmed 06/16/17 Last Taken 06/16/17] Fenofibrate Nanocrystallized [Fenofibrate] 145 mg PO DAILY 06/16/17 [History Confirmed 06/16/17 Last Taken 06/16/17] Glimepiride [Amaryl] 5 mg PO BID 06/16/17 [History Confirmed 06/16/17 Last Taken 06/16/17] Hydrochlorothiazide [Oretic] 25 mg PO DAILY 06/16/17 [History Confirmed Last Taken 06/16/17] Insulin Glargine,Hum.rec.anlog [Merrick Headley] 20 unit SQ QAM 06/16/17 [ History Confirmed 06/16/17 Last Taken 06/16/17] Metoprolol Succinate 50 mg PO QHS 06/16/17 [History Confirmed 06/16/17 Last Taken 06/15/17] Metoprolol Succinate [Toprol Xl] 100 mg PO QAM 06/16/17 [History Confirmed 06/16 Last Taken 06/16/17] Penicillin Vk 500 mg PO DAILY 06/16/17 [History Confirmed 06/16/17 Last Taken ] Valsartan [Diovan] 320 mg PO DAILY 06/16/17 [History Confirmed 06/16/17 Last Taken 06/16/17] Medical - DS: Hosp Hospital course: Mr. Corrales is a 46 year old M June 16, 2017: History of present illness: Mr. Corrales is a 46 year old man who presented to the emergency room today complaining of fever, myalgias, groin pain. He reported that he ran out of penicillin, which he is supposed to take daily for chronic right lower extremity cellulitis. The patient reports that he was first diagnosed with right lower extremity cellulitis in April 2014. He then had a recurrence in spring of this year. He believes he was hospitalized at [facility] for that. He says there is some question of osteomyelitis, and also some question of bacterial endocarditis. He was ultimately discharged to home and treated with IV vancomycin for 6 weeks. He followed up with ID, who recommended lifetime oral penicillin for suppression. This worked well, but about 1-1/2 weeks ago he ran out of his penicillin. Darlynsonia told him that he did not have refills, and then the holidays got in the way of him getting a new prescription. He was feeling well until this morning at around 9 clock he suddenly developed fever and chills. He knew that meant he was in trouble, so he reported to the emergency room, where he was found to be tachycardic and febrile. Within about 30 minutes he developed redness in his right leg and swelling, increased warmth and pain. Lactic acid was mildly elevated, he also has leukocytosis at 13,000. He is now admitted for right lower extremity cellulitis, with possible impending sepsis. Otherwise, he denies dizziness, new eye or ear symptoms, sore throat or cough, swollen glands, chest pain or palpitations, shortness of breath, abdominal pain , nausea or vomiting, diarrhea or constipation, dysuria. He had a mild headache today, but that is improved. Glucoses at home generally run less than 140, but have been running around 200 for the last couple of days. June 17: Outpatient notes obtained from Dr. Doshi from [facility], noted patient had several episodes of cellulitis starting in 2013. At some point he was diagnosed with streptococcal bacteremia. Echocardiogram was suspicious for possible aortic valve vegetation, but follow-up TORIE was negative. Patient was treated with 12 weeks of IV Rocephin plus vancomycin, and then transitioned to oral Keflex, and then to chronic oral penicillin for suppression. Last night, he continued to run a high fever, but that eventually broke after a dose of oral ibuprofen. Today, he says he is feeling quite a bit better. His leg is still feeling quite red and hot, but otherwise he is no longer having fever or chills. He denies swollen glands, chest pain or palpitations, shortness of breath, GI or symptoms appear June 18: Hospital course: The patient's fever has gradually come down, and leukocytosis has resolved. His clinical course is consistent with recurrent right lower extremity cellulitis. He will be sent home on IV vancomycin plus IV Rocephin. This is how he was managed previously, and he did fine. I suspect he may only need 1-2 weeks of IV antibiotics, and then can transition back to oral therapy. However, since this is a recurrent process, referral should be made to infectious disease, for further recommendations. Today, patient says he is feeling quite a bit better. He had a fever last night , that resolved after ibuprofen. His right leg continues to be swollen and hot , but is better than yesterday. He is having less pain. He did have an episode of nausea and vomiting this morning, but felt much better after he vomited. Otherwise he denies current fever or chills, chest pain or shortness of breath, abdominal pain, diarrhea or constipation, dysuria A/P Narrative: 1. Infectious disease. Patient presents with his typical symptoms of fever and right lower extremity pain, consistent with recurrent cellulitis. He has had several episodes in the past, some associated with sepsis. He meets criteria for SIRS syndrome, and has mildly elevated lactic acidosis, indicating possible impending sepsis. -The patient was started on empiric treatment with Zosyn and vancomycin. His fever finally broke . The area of swelling and erythema on his right lower leg are also improving today. -Discharge home with IV vancomycin plus IV Rocephin. Case management is working on getting this set up to be done at home, but he can certainly come as an outpatient for it in the meantime. Patient does have a spot on his goodman where he had a puncture wound from a football shoe cleat in the past. He has wondered if this could be hiding bacteria that causes recurrent episodes of cellulitis. It might be worthwhile to ask dermatology to remove that lesion, just in case it is acting as a nidus for recurrent infection. 2. Endocrine. Type 2 diabetes. Continue usual medications, probably okay to resume metformin at this point. Accu-Cheks and sliding scale insulin coverage as needed. -diabetic diet. 3. Hypertension. Continue usual medications, holding if needed. Blood pressures are well controlled at this time. HCTZ was held so we could hydrate him, but he can probably resume this tomorrow. Continue oral hydration. 4. CODE STATUS: Full code. His will act as his POA. 5. DVT prophylaxis: Subcu heparin. 6. obesity associated with elevated hemoglobin. -Patient has known obstructive sleep apnea. Continue his home CPAP machine . 7. GI. Patient reports history of fatty liver. He is working on weight loss and exercise. Continue cholesterol medications. Discharge diagnosis: Right lower extremity cellulitis. - Time Spent with Patient Total time spent providing and/or coordinating discharge services: Greater than 30 minutes Medical - DS: Exam - Constitutional Vitals: Vital Signs Temp Pulse Resp BP BP Pulse Ox 06/18/17 12:00 98.2 F 88 20 148/95 95 06/18/17 08:00 98.1 F 84 16 138/90 94 06/18/17 04:15 98.1 F 84 18 155/97 97 06/17/17 23:12 98.3 F 81 18 122/74 94 06/17/17 20:00 97.8 F 83 18 161/95 96 06/17/17 19:04 100.6 F H 06/17/17 17:50 99.0 F H Intake and Output 06/18/17 06/18/17 06/18/17 05:59 13:59 21:59 Intake Total 1760 / 1760 1060 / 1060 Output Total 1950 / 1950 Balance -190 / -190 1060 / 1060 Intake: IV 1560 / 1560 1060 / 1060 Zosyn 3.375 gm In Dextrose 5% 50 / 50 50 / 50 in Water 50 ml @ 100 mls/hr IV Q6H [facility] Rx#:[id number] Potassium Chloride 20 Meq In 1010 / 1010 1010 / 1010 Sodium Chloride 0.45% 1,000 ml @ 125 mls/hr IV .Q8H5M [facility] Rx#: [id number] Vancomycin 1,500 mg In Sodium 500 / 500 Chloride 0.9% 500 ml @ 333.3 mls/hr IV Q12H [facility] Rx#: [id number] Oral 200 / 200 Output: Void Amount 1949 Other: Meal HS snack Percent of Meal Consumed 100% Feeding Ability Independent # Voids 4 Weight 295 lb Patient Weight 06/19/17 05:59 Weight 295 lb . Medical - DS: Data Labs on day of discharge: Labs from last 24 hours 06/18/17 06/18/17 06/18/17 08:40 04:00 04:00 WBC 7.6 RBC 5.32 Hgb 14.9 Hct 45.0 MCV 84.5 MCH 28.1 MCHC 33.2 RDW 13.0 Plt Count 105 L MPV 11.6 H Gran % 69.2 Lymph % (Auto) 17.1 [place] % (Auto) 10.1 Eos % (Auto) 3.1 Baso % (Auto) 0.5 Gran # 5.3 Lymph # (Auto) 1.3 L [place] # (Auto) 0.8 Eos # (Auto) 0.2 Baso # (Auto) 0 Sodium 137 Potassium 3.6 Chloride 103 Carbon Dioxide 21 L Anion Gap 13.0 BUN 15 Creatinine 0.9 GFR Calculation 103 Glucose 129 H Uric Acid 3.3 Calcium 8.1 L Phosphorus 2.0 L Magnesium 2.3 Total Bilirubin 0.8 Direct Bilirubin < 0.2 GGT 41 AST 32 ALT 45 H Alkaline Phosphatase 51 Lactate Dehydrogenase 187 Total Protein 6.3 Albumin 3.5 Globulin 2.8 Albumin/Globulin Ratio 1.3 Triglycerides 337 H Vancomycin Trough 6.0 Preliminary micro results at discharge 06/16/17 11:25 Blood Culture - Preliminary Blood 06/16/17 11:30 Blood Culture - Preliminary Blood June 17: Blood cultures are negative so far. June 16: CBC: White blood cell count 13,000, hemoglobin 17.5, hematocrit 51, platelets 129,000. Differential shows 12,000 granulocytes. 900 lymphocytes. Chemistry panel: 141, potassium 3.7, anion gap 19, BUN 22, creatinine 1.0, glucose 187, calcium 9.7, total bilirubin 0.9 Lactic acid is elevated at 2.3 Pro-calcitonin is normal at 0.13 Anion gap is elevated at 19 next Chest x-ray is read as normal. Urinalysis: Show greater than 500 mg of glucose, but was otherwise normal. Vancomycin trough level done on June 18 was a bit low at 6.0 Medical - DS: A/P - Patient/Caregiver Discharge Instructions Activity: increase activity as tolerated Diet: Consistent Carbohydrate Additional Instructions: 1. Recurrent right lower extremity cellulitis. Please continue with IV vancomycin and IV Rocephin as directed. Follow-up with infectious disease for guidance on how long to continue IV antibiotics, and when to switch over to oral. Consider having dermatology remove the lesion on your leg that was from the previous puncture wound. Please stay well hydrated, as you have been running a fever for several days. Prescriptions: cefTRIAXone [Rocephin] 1 gm IM Q24H #7 vial Vancomycin/0.9 % Sod Chloride [Vanco 2 Gram/500 ml-0.9% NaCl] 2 gm IV Q12H 7 Days #14 mg - Problem Maintenance (1) Cellulitis of right lower extremity Status: Acute (2) SIRS (systemic inflammatory response syndrome) Status: Acute (3) Type 2 diabetes mellitus Status: Chronic (4) Lactic acidosis Status: Resolved (5) Hypertension Status: Chronic (6) Streptococcal bacteremia Status: Resolved (7) Obstructive sleep apnea Status: Chronic (8) Fatty liver Status: Chronic (9) Pneumococcal pneumonia Status: Resolved - Follow up Plan Follow up with: Adrien Smith MD [Primary Care Provider] - Disposition: Home, Self-Care Prognosis: Good Rehab Potential: Good Overall status at discharge: patient is progressing back to baseline Medical - DS: Qual - VTE Deep Vein Thrombosis/Pulmonary Embolism Present on Admission: No
== END 2017-06-18 22:58 | disposition home or self-care (01) | DRG 580 ==
LOC: ED 10:57 → MEDSUR 13:49
PROVIDERS: ADMIT Internal Medicine; ATTEND Internal Medicine

== ENCOUNTER 2021-12-19 04:33 | Inpatient (IN) ==
[2021-12-19] MEDS ORDERED: morphine 4 MG/ML VIAL IV ONE (05:13)
[2021-12-19 06:15] LABS: Basophils # (Auto) 0.11 K/mcL (0.00-0.30); Basophils % (Auto) 0.9 % (0.0-2.0); Eosinophils # (Auto) 0.49 K/mcL (0.00-0.70); Eosinophils % (Auto) 4.1 % (0.0-7.0); Hematocrit 37.3 % (40.1-51.0); Hemoglobin 11.9 g/dL (13.7-17.5); Lymphocytes # (Auto) 2.06 K/mcL (1.50-4.80); Lymphocytes % (Auto) 17.1 % (15.5-49.0); Mean Cell Volume 85.7 fL (80.0-100.0); Mean Corpuscular HGB Conc 31.9 g/dL (31.0-36.0); Mean Platelet Volume 11.5 fL (7.4-10.4); Monocytes # (Auto) 1.02 K/mcL (0.10-0.90); Monocytes % (Auto) 8.5 % (1.0-12.0); Neutrophils % (Auto) 69.4 % (38.0-78.0); Platelet Count 342 K/mcL (140-440); RBC 4.35 M/mcL (4.63-6.08); Red Cell Distribution Width 13.3 % (11.5-14.5); WBC 12.1 K/mcL (4.5-11.0)
[2021-12-19 06:38] LABS: Blood Urea Nitrogen 18 mg/dL (6-20); Carbon Dioxide 23 mmol/L (22-30); Chloride 101 mmol/L (96-108); Glomerular Filtration Rate 104; Glucose 98 mg/dL (70-105)
--- NOTE | 2021-12-19 06:49 | XRay Report ---
INDICATION: SOB, PND, orthopnea, recent quad CABG TECHNIQUE: AP portable semiupright chest x-ray COMPARISON: None FINDINGS:Previous median sternotomy and coronary artery bypass procedure Heart, vascular:There is cardiomegaly. There is prominent pulmonary vascularity consistent with pulmonary congestion. There is peribronchial thickening and probable interstitial edema. LUNGS: Left basilar pulmonary parenchymal consolidation. This may be due to pulmonary edema or pneumonia. Clinical correlation follow-up radiograph recommended Mediastinum, freida:No mediastinal widening. No hilar mass Pleura:No pleural fluid. No pleural-based mass or calcification Skeletal:Negative. IMPRESSION: 1. Cardiomegaly and pulmonary congestion. 2. Probable interstitial edema. 3. Left basilar consolidation consistent with focal pulmonary edema or pneumonia. Interpreted and Authenticated by: Hayes Morejon 12/19/21
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
[2021-12-19] MEDS ORDERED: FUROSEMIDE 40 MG/4 ML VIAL IV ONE ×2 (07:36→07:40)
[2021-12-19] MEDS ORDERED: DOXYCYCLINE 100 MG in DEXTROSE 5% IN WATER 100 ML IV ONE (07:40)
[2021-12-19] MEDS ORDERED: cefTRIAXone 1 GM VIAL IV ONE ×2 (07:40→10:45)
[2021-12-19] MEDS ORDERED: ONDANSETRON 4 MG/2 ML VIAL IV PRN ×2 (07:41→10:36)
[2021-12-19] MEDS ORDERED: NALOXONE HCL 0.4 MG/ML VIAL IV PRN (07:41)
[2021-12-19] MEDS ORDERED: morphine 2 MG/ML VIAL IV PRN (07:41)
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
[2021-12-19] MEDS ORDERED: morphine 2 MG/ML VIAL IV ONE (09:13)
[2021-12-19] MEDS ORDERED: METOPROLOL TARTRATE 5 MG/5 ML VIAL IV ONE (09:13)
[2021-12-19] MEDS ORDERED: POLYETHYLENE GLYCOL 3350 17 GM PACKET PO PRN (10:36)
[2021-12-19] MEDS ORDERED: POTASSIUM CHLORIDE 20 MEQ TABLET PO PRN ×2 (10:36)
[2021-12-19] MEDS ORDERED: ACETAMINOPHEN 325 MG TABLET PO PRN (10:36)
[2021-12-19] MEDS ORDERED: MAGNESIUM SULFATE 2 GM/50 ML BAG IV PRN (10:36)
[2021-12-19] MEDS ORDERED: POTASSIUM CHLORIDE 40 MEQ in DEXTROSE 5% IN WATER 500 ML IV PRN (10:36)
[2021-12-19] MEDS ORDERED: METOPROLOL TARTRATE 5 MG/5 ML VIAL IV PRN (10:36)
[2021-12-19] MEDS ORDERED: SENNOSIDES 1 TABLET PO PRN (10:36)
[2021-12-19] MEDS ORDERED: DEXTROSE 50% 50 ML VIAL IV PRN (10:36)
[2021-12-19] MEDS ORDERED: DEXTROSE 31 GM ORAL.SUSP PO PRN (10:36)
[2021-12-19] MEDS ORDERED: oxyCODONE HCL 5 MG TABLET PO PRN (10:48)
[2021-12-19] MEDS ORDERED: INSULIN ASPART U SCH (11:00)
[2021-12-19] MEDS ORDERED: HYDROCHLOROTHIAZIDE 25 MG TABLET PO ONE (11:20)
[2021-12-19 11:30] LABS: Hemoglobin A1C 8.7 % Hgb (4.0-6.0)
[2021-12-19] MEDS: AZITHROMYCIN 500 MG in DEXTROSE 5% IN WATER 250 ML IV SCH (11:30)
[2021-12-19] MEDS ORDERED: INSULIN LISPRO 1 UNIT/0.01 ML UNIT SQ SCH (11:30)
[2021-12-19] MEDS: INSULIN LISPRO 1 UNIT/0.01 ML UNIT SQ SCH ×5 (11:38→21:22)
[2021-12-19] MEDS: FUROSEMIDE 40 MG/4 ML VIAL IV SCH ×2 (13:41→21:04)
[2021-12-19] MEDS: 0.9 % SODIUM CHLORIDE 10 ML SYRINGE IV SCH ×2 (13:43→21:04)
[2021-12-19] MEDS: POTASSIUM CHLORIDE 20 MEQ TABLET PO SCH (16:57)
[2021-12-19] MEDS ORDERED: LORazepam 2 MG/ML VIAL IV ONE (20:12)
[2021-12-19] MEDS ORDERED: PENICILLIN VK 250 MG PO SCH (21:00)
[2021-12-19] MEDS ORDERED: ATORVASTATIN 40 MG TABLET PO SCH (21:00)
[2021-12-19] MEDS: METOPROLOL TARTRATE 25 MG TABLET PO SCH (21:04)
[2021-12-20] MEDS: FUROSEMIDE 40 MG/4 ML VIAL IV SCH (05:27)
[2021-12-20] MEDS: 0.9 % SODIUM CHLORIDE 10 ML SYRINGE IV SCH (05:27)
[2021-12-20 07:02] LABS: ALT/SGPT 14 U/L (<40); AST/SGOT 16 U/L (<40); Albumin 3.8 gm/dL (3.2-5.2); Albumin/Globulin Ratio 1.2 (1.0-2.3); Alkaline Phosphatase 75 U/L (39-117); Bilirubin,Direct 0.2 mg/dL (<0.3); Bilirubin,Total 0.9 mg/dL (0.1-1.0); Blood Urea Nitrogen 17 mg/dL (6-20); Calcium 9.2 mg/dL (8.6-10.4); Carbon Dioxide 28 mmol/L (22-30); Chloride 99 mmol/L (96-108); Globulin 3.2 gm/dL (2.2-3.7); Glomerular Filtration Rate 104; Glucose 129 mg/dL (70-105); Lactate Dehydrogenase 234 U/L (135-225); Phosphorous 4.2 mg/dL (2.5-4.5); Triglycerides 78 mg/dL (<150); Uric Acid 5.4 mg/dL (2.5-8.0)
[2021-12-20 07:08] LABS: Hematocrit 37.5 % (40.1-51.0); Mean Cell Volume 83.9 fL (80.0-100.0); Platelet Count 432 K/mcL (140-440); RBC 4.47 M/mcL (4.63-6.08); Red Cell Distribution Width 13.3 % (11.5-14.5); WBC 12.4 K/mcL (4.5-11.0)
--- NOTE | 2021-12-20 07:21 | EKG ---
TS Minor Care Test Date: 2021-12-19 Pat Name: Abdirashid Corrales Department: ED Room: Gender: Male Weather Analyst: ANDREW : 1970 Requested By: Lan Pham Order Number: [id number] Reading MD: Real Farnsworth Measurements Intervals [place] Rate: 97 P: 52 VT: 160 QRS: 63 QRSD: 77 T: 117 QT: 368 QTc: 468 Interpretive Statements Sinus rhythm Low voltage, extremity leads Electronically Signed On 12-20-2021 7:20:49 PDT by Real Farnsworth /store/M0/[id number]
[2021-12-20 08:15] LABS: Band Neutrophils % 3 % (0-10); Eosinophils % (Manual) 3 % (0-7); Lymphocytes % 23 % (15-49); Monocytes % (Manual) 6 % (1-12); Platelet Estimate NORMAL (Normal); RBC Morphology NORMAL (Normal); Segmented Neutrophils % 65 % (38-78)
[2021-12-20] MEDS: INSULIN LISPRO 1 UNIT/0.01 ML UNIT SQ SCH ×4 (08:23→12:26)
[2021-12-20] MEDS: POTASSIUM CHLORIDE 20 MEQ TABLET PO SCH (08:24)
[2021-12-20] MEDS: METOPROLOL TARTRATE 25 MG TABLET PO SCH (08:25)
[2021-12-20] MEDS ORDERED: ASPIRIN 81 MG TAB.CHEW PO SCH (09:00)
[2021-12-20] MEDS ORDERED: FENOFIBRATE 43 MG CAPSULE PO SCH (09:00)
[2021-12-20] MEDS ORDERED: INSULIN GLARGINE, HUMAN 1 UNIT/0.01 ML SQ SCH (09:00)
[2021-12-20] MEDS ORDERED: EMPAGLIFLOZIN LINAGLIPTIN PO SCH (09:00)
[2021-12-20] MEDS ORDERED: ENOXAPARIN 40 MG/0.4 ML SYRINGE SQ SCH (09:00)
[2021-12-20] MEDS ORDERED: cefTRIAXone 2 GM in DEXTROSE 5% IN WATER 50 ML IV SCH (09:00)
[2021-12-20] MEDS ORDERED: FUROSEMIDE 40 MG/4 ML VIAL IV SCH (09:00)
[2021-12-20] MEDS: AZITHROMYCIN 500 MG in DEXTROSE 5% IN WATER 250 ML IV SCH (11:09)
--- NOTE | 2021-12-20 12:17 | Ultrasound Report ---
INDICATION: swelling, edema COMPARISON: None. TECHNIQUE: Grayscale and color flow Doppler spectral imaging of the deep venous system in the right lower extremity. FINDINGS: Negative right common femoral vein. Proximal right femoral vein is negative. There is location of the right femoral vein at its midportion. There is nonobstructing thrombus within the mid and distal femoral veins. Right popliteal vein is normal. Anterior and posterior tibial veins are normal. There is occlusion of the right peroneal veins. Right greater saphenous vein is occluded through its length IMPRESSION: 1. Partially occluding thrombus with in a duplicated femoral vein 2. Occlusive thrombus within the right peroneal veins 3. Occlusive thrombus within the right greater saphenous vein Interpreted and Authenticated by: Hayes Morejon 12/20/21
--- NOTE | 2021-12-20 13:23 | Discharge Summary ---
Discharge Provider Provider IMPORTANT FOLLOW-UP INFORMATION FOR PCP: Patient information: Note initiated : 12/20/21 at 1:22 pm Service Date, if different from initiated Date: [as above] Patient: Abdirashid Corrales 51 y/o M admitted on 12/19/21 for Shortness of breath. Chief Complaint: [SOB] Date of admission: 12/19/21 08:55 Discharge date: 12/20/21 Primary care physician: Hayes Dunbar DO Admitting clinician: Akshat Rivas Consults: 12/19/21 Consult to Physician [CONS] Stat Comment: Consulting Provider: Akshat Rivas Reason For Exam: Physician to Consult Discharging clinician: Raudel De Santiago COURSE Hospital Course Hospital course: 51-year-old obese male with a complex past medical history significant for hypertension, hyperlipidemia, and diabetes mellitus type 2 who was recently admitted for coronary artery bypass grafting at [facility] last month and now presents to the hospital with progressive dyspnea due to congestive heart failure exacerbation. The patient likely developed got edema and was unable to absorb his oral diuretics thus exacerbating his symptoms. He complained of early satiety, unable to lie in a recumbent position, and dyspnea on exertion. The patient had been started on Lasix 40 mg IV 3 times daily and was -5.6 L so far. An echo was obtained this morning, and was concerning for pericardial effusion. A stat read was sent and revealed normal LV size, mild concentric LV hypertrophy with left LV systolic function mildly reduced. EF was estimated to be 50 to 55%. There was apical inferolateral wall dyskinesia. Left ventricular diastolic function was normal. He was noted to have a large circumferential pericardial effusion with diastolic compression of the right atrium suggestive of cardiac tamponade. Pericardial effusion measured 3.05 cm at the parasternal short axis. I discussed the case with CT surgeon Dr. Carrington from [facility] who kindly agreed to accept the patient as we do not have cardiac services available at our facility. Discharge diagnosis: HFpEF 55%, cardiac tamponade Time Spent with Patient Time attestation: Total time spent providing and/or coordinating discharge services: Time spent: Greater than 30 minutes EXAM Constitutional Vitals: Temp Pulse Resp BP Pulse Ox 97.6 F 85 18 124/79 94 12/20/21 12:04 12/19/21 16:03 12/20/21 12:04 12/20/21 12:04 12/20/21 12:04 General appearance: obese Head Head exam: Present atraumatic and normal inspection Eye Eye exam: Present EOMI Neck Neck exam: Present full ROM Respiratory Respiratory exam: Present normal respiratory exam and CTAB Cardiovascular Cardiovascular exam: Present normal rate and rhythm and JVD GI/Abdominal GI/Abdominal exam: Present normal bowel sounds, soft and distended Neurological Exam Neurological exam: Present alert and oriented X3 Discharge Data Data Completed and Pending Labs on day of discharge: Labs from last 24 hours 12/20/21 12/20/21 05:28 05:28 WBC 12.4 H RBC 4.47 L Hgb 12.0 L Hct 37.5 L MCV 83.9 MCH 26.8 MCHC 32.0 RDW 13.3 Plt Count 432 MPV 11.0 H Seg Neutrophils % 65 Band Neutrophils % 3 Lymphocytes % 23 Monocytes % (Manual) 6 Eosinophils % (Manual) 3 Platelet Estimate Normal RBC Morphology Normal Sodium 137 Potassium 3.5 Chloride 99 Carbon Dioxide 28 Anion Gap 10.0 BUN 17 Creatinine 0.8 GFR Calculation 104 Glucose 129 H Uric Acid 5.4 Calcium 9.2 Phosphorus 4.2 Magnesium 2.4 Total Bilirubin 0.9 Direct Bilirubin 0.2 GGT 54 AST 16 ALT 14 Alkaline Phosphatase 75 Lactate Dehydrogenase 234 H Total Protein 7.0 Albumin 3.8 Globulin 3.2 Albumin/Globulin Ratio 1.2 Triglycerides 78 Preliminary micro results at discharge 12/19/21 08:17 Blood Culture - Preliminary Blood 12/19/21 08:13 Blood Culture - Preliminary Blood Discharge Plan Patient/Caregiver Discharge Instructions Diet: Low Sodium (2gm) Prescriptions: No Action (DME) pen needle, diabetic [1st Tier Unifine Pentips] 31 gauge x 5/16" needle See Rx Instructions .Route Qty: 100 3RF Rx Instructions: Use to administer insulin daily Glyxambi 25-5 mg tablet 1 tab PO QDAY Qty: 90 1RF metformin 500 mg tablet extended release 24hr 1,000 mg PO BID Qty: 360 1RF (DME) pen needle, diabetic [1st Tier Unifine Pentips] 31 gauge x 5/16" needle See Rx Instructions .Route Qty: 400 1RF Rx Instructions: USe to administer insulin 4 times daily Ozempic 1 mg/dose (4 mg/3 mL) pen injector 1 mg subcut QWEEK Qty: 9 2RF Rx Instructions: On Tuesdays weekly. fenofibrate nanocrystallized 145 mg tablet 145 mg PO QDAY Qty: 90 0RF (DME) CPAP machine See Rx Instructions .Route .MEDSUPPLY Qty: 1 0RF Rx Instructions: As directed metoprolol tartrate 25 mg tablet 25 mg PO BID 0RF potassium chloride 10 mEq tablet extended release 20 meq PO BID 0RF Rx Instructions: 2 tabs PO BID for 14 days, starting on 12/13/21. furosemide [Lasix] 40 mg tablet 40 mg PO BID 0RF Rx Instructions: 40mg BID for 14 days starting on 12/13/21. Accu-Chek 1 EACH strip 1 ea FS ACHS 0RF aspirin [Rose Marie Chewable Aspirin] 81 mg tablet,chewable 162 mg PO DAILY 0RF penicillin V potassium 250 mg tablet 2 tab PO BID 0RF acetaminophen [Acetaminophen Extra Strength] 500 mg Tablet 1,000 mg PO Q8H PRN (Reason: Pain) 0RF insulin aspart U-100 [Novolog U-100 Insulin aspart] 100 unit/mL Solution 20 unit SUBCUT TID 0RF Rx Instructions: 20 units per meal in addition to personalized sliding scale. 10 units per snack. oxycodone 5 mg tablet 5 - 10 mg PO Q4H PRN (Reason: Pain) 0RF Basaglar KwikPen U-100 Insulin 100 unit/mL (3 mL) Insulin Pen 50 unit SUBCUT QAM 0RF insulin aspart U-100 [Novolog U-100 Insulin aspart] 100 unit/mL Solution See Rx Instructions .ROUTE .COMPLEX 0RF Rx Instructions: Per personalized sliding scale in addtion to 20 units for meals. <150 0 units 150-200 3 units 201-250 6 units 251-300 9 units 301-350 12 units 351-400 15 units >400 18 units atorvastatin 80 mg tablet 80 mg PO HS 0RF Follow Up Plan Follow up with: Hayes Dunbar DO [Primary Care Provider] - Patient Disposition: Xfer As Inpt ([facility]) Prognosis: Fair Rehab Potential: Serious I certify that the patient requires SNF services: Yes Discharge Orders: Discharge Order (Routine); Ordered 12/20/21 Ordered By: Raudel RABAGO VTE Deep Vein Thrombosis/Pulmonary Embolism Present on Admission: No
--- NOTE | 2021-12-21 08:17 | EKG ---
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 Measurements Intervals [place] Rate: 146 P: MN: QRS: 80 QRSD: 86 T: QT: 323 QTc: 504 Interpretive Statements Atrial fibrillation Ventricular premature complex Low voltage, extremity leads Atrial fibrillation new compared to prior ECG Electronically Signed On 12-21-2021 8:17:25 PDT by Hayes Myers M.D. /[id number]
[2021-12-21] MEDS ORDERED: PNEUMOCOCCAL 23-VAL P-SAC VAC 0.5 ML SYRINGE IM ONE (10:00)
== END 2021-12-20 13:29 | disposition short-term general hospital (02) | DRG 291 ==
LOC: ED 04:33 → ICU 08:55
PROVIDERS: ADMIT Internal Medicine; ATTEND Student in an Organized Health Care Education/Training Program